=== PATIENT | male | born 1980 | race Caucasian/White ===

== ENCOUNTER 2019-12-12 10:45 | Emergency (ER) | payer OTHER ==
[~2019-12-12] VITALS: Ht 180.3 cm; Wt 63.6 kg
[2019-12-12 10:57] VITALS: TEMP 98.2
[2019-12-12 11:46] LABS: BASO # 0.1 (0.0-0.2); BASO % 0.8 % (0.0-2.0); EOS # 0.1 (0.0-0.7); EOS % 1.3 % (0-4.0); GRAN % 61.8 % (42.2-75.2); HEMATOCRIT 46.1 % (42.0-52.0); HEMOGLOBIN 16.4 g/dl (13.5-18.0); LYMPH # 2.8 (1.2-3.4); LYMPH % 28.6 % (20.0-51.0); MEAN CELL VOLUME 88 fl (80.0-100.0); MEAN CORPUSCULAR HEMOGLOBIN 31 pg (27.0-31.0); MEAN CORPUSCULAR HGB CONC 36 g/dl (33.0-37.0); MEAN PLATELET VOLUME 10.4 fl (7.4-10.4); MONO # 0.7 (0.1-0.6); MONO % 6.8 % (1.7-9.3); PLATELET COUNT 316 K/mm3 (130-400); RED BLOOD COUNT 5.26 M/mm3 (4.20-5.60); REDCELL DISTRIBUTION WIDTH-CV 13.2 % (11.5-14.5)
[2019-12-12 12:03] LABS: ALANINE AMINOTRANSFERASE 20 U/L (4-49); ALBUMIN 3.8 gm/dL (3.5-5.0); ALKALINE PHOSPHATASE 126 U/L (50-136); ANION GAP 6 mmol/L (7-16); AST,SGOT 30 U/L (15-37); BILIRUBIN,TOTAL 0.4 mg/dL (0.0-1.0); BLOOD UREA NITROGEN 5 mg/dL (9-20); CARBON DIOXIDE 27 mmol/L (22-30); CHLORIDE 100 mmol/L (98-107); CREATININE, serum 0.46 (0.66-1.25); GLUCOSE 156 mg/dL (74-106); LIPASE 36 U/L (23-300); POTASSIUM 3.7 mmol/L (3.4-5.0); SODIUM 133 mmol/L (137-145); TOTAL PROTEIN 6.4 gm/dL (6.4-8.2)
[2019-12-12 12:04] LABS: C-REACTIVE PROTEIN < 0.5 mg/dL (0.0-0.9)
[2019-12-12 12:12] LABS: COLLECTION METHOD CLEAN CATCH
[2019-12-12 12:19] LABS: MUCOUS Present /lpf; PH 6 (5-8); SQUAMOUS EPITHELIAL 0-2 /hpf; URINE APPEARANCE Cloudy; URINE BACTERIA None Seen /hpf; URINE BILIRUBIN Negative (NEGATIVE); URINE BLOOD Negative (NEGATIVE); URINE COLOR Yellow; URINE GLUCOSE 3+ (NEGATIVE); URINE KETONE Trace (NEGATIVE); URINE LEUKOCYTE ESTERASE Negative (NEGATIVE); URINE NITRATE Negative (NEGATIVE); URINE PROTEIN(semi-quant) 2+ (NEGATIVE); URINE UROBILINOGEN Negative (NEGATIVE)
[2019-12-12 13:57] VITALS: BP 135/87; PULSE 76
--- NOTE | 2019-12-12 14:08 | NUR ---
ADA responded to ED consult. The patient informed his RN that he is unable to afford his insulin. ADA and the RN then met with the patient. ADA discussed medication assistance through the [facility]. The patient reports that he has been on Novolin R and Novolin 70/30. The patient reports that he is able to afford these medications and has been taking them in place of Lantus. He states that it is the Lantus he cannot afford and that he does not have a prescription for the Lantus. He reports that his PCP used to be Dr. Babb in [place] and that is who prescribed him the above meds. He now lives in [place]. ADA discussed how this SW could contact [facility] [place] to inquire if they have Lantus. The patient reports that he has the meds he needs, but does not have any one to keep writing these prescriptions. He also states that he can just get the Lantus through a pharmacy in [place]. ADA discussed getting established with a PCP or sliding scale fee clinic. The patient did not have a preference. The patient's RN offered to contact a clinic and to get him set up with a PCP. The patient was agreeable to this. The patient states that his ride is here and he was ready to d/c from the ED. No additional needs at this time.
== END 2019-12-12 14:00 | disposition home or self-care (01) ==
LOC: COL.ER 10:45
PROVIDERS: Family Medicine
DX: R10.11 Right upper quadrant pain (principal); E11.9 Type 2 diabetes mellitus without complications
CPT/HCPCS: J2270; J2405; J7120